=== PATIENT | female | born 1985 | race Caucasian/White ===

== ENCOUNTER 2022-06-27 18:08 | Inpatient (IN) | payer MEDICAID ==
[~2022-06-27] VITALS: Ht 157.5 cm; Wt 76.2 kg
[2022-06-27] MEDS ORDERED: LIDOCAINE HCL 1% 10 MG/ML 10ML VIAL IJ SCH ×2 (19:00→20:30)
[2022-06-27] MEDS ORDERED: CARBOPROST TROMETHAMINE 250 MCG/ML AMPUL IM PRN (19:00)
[2022-06-27] MEDS ORDERED: NALOXONE HCL 0.4 MG/ML 1ML VIAL IM PRN (19:00)
[2022-06-27] MEDS ORDERED: BUTORPHANOL TARTRATE 2 MG/ML VIAL IV PRN (19:00)
[2022-06-27] MEDS ORDERED: LACTATED RINGERS 1,000 ML IV SCH (19:00)
[2022-06-27] MEDS ORDERED: METHYLERGONOVINE MALEATE 0.2 MG/ML IM PRN ×2 (19:00→20:00)
[2022-06-27 19:26] LABS: BASOPHILS % 0.4 % (0.0-2.0); EOSINOPHILS % 0.2 % (0.0-5.0); HEMATOCRIT. 38.2 % (36.0-48.0); HEMOGLOBIN. 13.2 g/dL (12.0-16.0); LYMPHOCYTES % 18.9 % (20.0-50.0); MEAN CORPUSCULAR HEMOGLOBIN 31.1 pg (28.0-32.0); MEAN CORPUSCULAR VOLUME 90.3 fL (81.0-99.0); MEAN PLATELET VOLUME 9.5 fl (7.4-10.4); MONOCYTES % 4.5 % (2.0-8.0); PLATELET 249 x1000/uL (130-400); RED BLOOD CELL COUNT 4.24 mill/uL (4.2-5.4); RED CELL DISTRIBUTION WIDTH 13.6 % (11.6-14.6)
[2022-06-27 19:36] LABS: INR 0.9; PARTIAL THROMBOPLASTIN TIME 27.6 sec (23.4-31.0); PROTHROMBIN TIME 9.8 sec (9.6-11.0)
[2022-06-27 19:53] LABS: *AMPHETAMINES SCREEN URINE NEGATIVE (NEGATIVE); *BARBITURATES SCREEN URINE NEGATIVE (NEGATIVE); *BENZODIAZEPINES SCREEN URINE NEGATIVE (NEGATIVE); *COCAINE SCREEN URINE NEGATIVE (NEGATIVE); CANNABINOID URINE SCREEN NEGATIVE (NEGATIVE); METHADONE URINE SCREEN NEGATIVE (NEGATIVE); OPIATES URINE SCREEN NEGATIVE (NEGATIVE); PHENCYCLIDINE URINE SCREEN NEGATIVE (NEGATIVE)
[2022-06-27] MEDS ORDERED: BENZOCAINE/LANOLIN/ALOE VERA SPRAY TOP PRN (20:00)
[2022-06-27] MEDS ORDERED: ACETAMINOPHEN WITH CODEINE 300/30MG TABLET PO PRN (20:00)
[2022-06-27] MEDS ORDERED: HEMORRHOIDAL SUPP PR PRN (20:00)
[2022-06-27] MEDS ORDERED: DIPHENHYDRAMINE 25MG CAPSULE PO PRN (20:00)
[2022-06-27] MEDS ORDERED: LANOLIN OINT 7GM TUBE TOP PRN (20:00)
[2022-06-27] MEDS ORDERED: GLYCERIN/WITCH HAZEL LEAF MEDICATED PAD TOP PRN (20:00)
[2022-06-27] MEDS ORDERED: IBUPROFEN 400MG TABLET PO PRN (20:00)
[2022-06-27] MEDS ORDERED: OXYTOCIN 30 UNITS/500ML NS PMX 500 ML IV SCH (20:00)
[2022-06-27] MEDS ORDERED: BISACODYL 10MG SUPP PR PRN (20:00)
[2022-06-27] MEDS ORDERED: RHO(D) IMMUNE GLOBULIN 300 MCG/SYR IM PRN (20:00)
[2022-06-27] MEDS ORDERED: PENICILLIN G POTASSIUM 5 MMU in DEXT 5% WATER 100 ML IV NR (20:00)
[2022-06-27] MEDS ORDERED: IBUPROFEN 800MG TABLET PO PRN (20:00)
[2022-06-27] MEDS: OXYTOCIN 30 UNITS/500ML NS PMX 500 ML IV SCH ×2 (20:10→20:48)
[2022-06-27 20:14] LABS: HEPATITIS B SURFACE ANTIGEN NEGATIVE
[2022-06-27] MEDS ORDERED: DOCUSATE SODIUM 100MG CAPSULE PO SCH (21:00)
[2022-06-27 22:10] VITALS: BP 127/66
[2022-06-28] MEDS ORDERED: PENICILLIN G POTASSIUM 2.5 MMU in DEXTROSE 5% WATER 50 ML IV SCH ×2
[2022-06-28 04:00] VITALS: BP 117/62
[2022-06-28 07:45] VITALS: BP 130/69
[2022-06-28 07:51] LABS: BASOPHILS % 0.4 % (0.0-2.0); EOSINOPHILS % 0.3 % (0.0-5.0); HEMATOCRIT. 31.5 % (36.0-48.0); HEMOGLOBIN. 10.9 g/dL (12.0-16.0); LYMPHOCYTES % 18.6 % (20.0-50.0); MEAN CORPUSCULAR HEMOGLOBIN 31.6 pg (28.0-32.0); MEAN CORPUSCULAR VOLUME 91.8 fL (81.0-99.0); MEAN PLATELET VOLUME 9.7 fl (7.4-10.4); NEUTROPHILS % 75.7 % (40.0-76.0); PLATELET 227 x1000/uL (130-400); RED BLOOD CELL COUNT 3.43 mill/uL (4.2-5.4); RED CELL DISTRIBUTION WIDTH 13.5 % (11.6-14.6)
[2022-06-28] MEDS: FERROUS SULFATE 325MG TABLET PO SCH (08:37)
[2022-06-28] MEDS: MAGNESIUM/ALUMINUM HYDROXIDE/SIMETHICONE 30ML UDC PO SCH ×2 (08:37→21:02)
[2022-06-28] MEDS: SIMETHICONE 80MG TABLET CHEW PO SCH ×2 (08:38→21:02)
[2022-06-28] MEDS: PRENATAL VIT/FE FUMARATE/FA TABLET PO SCH (08:38)
[2022-06-28 16:00] VITALS: BP 129/53
[2022-06-28 20:00] VITALS: BP 115/62
[2022-06-28] MEDS ORDERED: INFLUENZA VACCINE 05/PF 0.5 ML SYRINGE IM ONE (21:00)
[2022-06-29 04:00] VITALS: BP 113/70
[2022-06-29 07:45] VITALS: BP 120/70
[2022-06-29 08:08] LABS: HIV SCREEN 4G Non Reactive (Non Reactive)
[2022-06-29] MEDS: FERROUS SULFATE 325MG TABLET PO SCH (08:32)
[2022-06-29] MEDS: MAGNESIUM/ALUMINUM HYDROXIDE/SIMETHICONE 30ML UDC PO SCH (08:32)
[2022-06-29] MEDS: SIMETHICONE 80MG TABLET CHEW PO SCH (08:32)
[2022-06-29] MEDS: PRENATAL VIT/FE FUMARATE/FA TABLET PO SCH (08:32)
== END 2022-06-29 13:55 | disposition home or self-care (01) | DRG 560 ==
LOC: 8 EST LDRP 18:08 → OBSVTOIN 18:08 → 8EST 22:10
PROVIDERS: ADMIT Obstetrics & Gynecology; ATTEND Obstetrics & Gynecology
PROC: 10E0XZZ Delivery of Products of Conception, External Approach (ICD-10-PCS; principal; 2022-06-27)
PROC: 0KQM0ZZ Repair Perineum Muscle, Open Approach (ICD-10-PCS; 2022-06-27)
DX: O69.81X0 Labor and delivery complicated by cord around neck, without compression, not applicable or unspecified (principal); Z37.0 Single live birth; D62 Acute posthemorrhagic anemia; O70.1 Second degree perineal laceration during delivery; Z20.822 Contact with and (suspected) exposure to COVID-19; O99.214 Obesity complicating childbirth; O99.824 Streptococcus B carrier state complicating childbirth; Z3A.38 38 weeks gestation of pregnancy; O90.81 Anemia of the puerperium
CPT/HCPCS: 36415; 80305; 85025; 86592; 86762; 86850; 86900; 87340; 87389; 87426; 90686; J2540; J3490; J7060; J7120; J2590